=== PATIENT | female | born 1960 | race Caucasian/White ===

== ENCOUNTER → 2019-12-26 14:43 | Outpatient (BNVA) | payer MEDICARE, MEDICAID, SELFPAY | PROVIDERS: Family Provider Physician Assistant; Visit Provider Nurse Practitioner Family | DX: R05 Cough (principal); J01.40 Acute pansinusitis, unspecified | CPT/HCPCS: 87804 ==

== ENCOUNTER 2020-08-17 07:50 | Outpatient (CLI) | payer MEDICARE, MEDICAID, SELFPAY ==
--- NOTE | 2020-08-17 08:10 | MR_ITS ---
WS: [id number] MRI LUMBAR SPINE NONCONTRAST HISTORY: LOW BACK PAIN COMPARISON: 11/30/2018 TECHNIQUE: Sagittal and axial multisequence imaging is submitted. Moderate RIGHT thoracic and LEFT lumbar scoliosis. Mild straightening of the normal cervical lordosis . Same numbering pattern will be utilized as on the prior MRI. Posterior lumbar alignment is normal. Mild disc space narrowing and desiccation throughout the lumbar spine. No severe narrowing of the dis cs. Benign hemangioma within L2. Conus terminates normally at L1-2 disc level. L1-L2: Mild annular disc bulging with mild facet joint arthritis. No stenosis or interval change. L2-L3: Normal. L3-L4: Mild annular disc bulging and moderate facet and ligamentum flavum hypertrophy. Increase fluid in the facet joints, similar to the prior study. No significant stenosis. L4-L5: Diffuse asymmetric disc bulging with moderate ligamentum flavum disease and facet arthritis. I ncrease fluid in the facet joints is slightly increased since the prior study. No significant stenosi s. L5-S1: Mild asymmetric annular disc bulging and facet arthritis. Increase fluid in the facet joints b ilaterally. Visualized retroperitoneum is negative. MR/MR lumbar spine wo con* [id number] IMPRESSION: 1. Moderate LEFT scoliosis. 2. No high-grade central or foraminal stenosis. 3. Facet joint arthritis most significant from L3-4 to L5-S1. Minimal progress ion in the facet joint arthritis at L4-5.
--- NOTE | 2020-08-17 08:10 | XR_ITS ---
WS: [id number] LATERAL LUMBAR SPINE: 3 view. Lateral radiographs are performed in upright neutral, flexion and extension to the patient's toleranc e. HISTORY: LOW BACK PAIN COMPARISON: 11/30/2018 L5 anterolisthesis by 3.3 mm. With flexion and extension and taking into consideration the rotation t here is no change with flexion or extension as noted on the prior study. Posterior alignment is melita l. Vertebral bodies are rotated due to scoliosis. Facet joint arthritis is mild at L5-S1. Heavy calcification within the aorta. XR/XR lumbar spine f/e only [id number] IMPRESSION: 1. Mild anterolisthesis of L5 by 3.3 mm. No instability demonstrated. 2. Moderate atherosclerosis aorta.
== END 2020-08-17 07:51 | disposition home or self-care (01) ==
LOC: RADWPI 07:52
PROVIDERS: Family Provider Physician Assistant; Visit Provider Anesthesiology Pain Medicine
DX: I70.0 Atherosclerosis of aorta (principal); M41.9 Scoliosis, unspecified; M47.816 Spondylosis without myelopathy or radiculopathy, lumbar region; M47.817 Spondylosis without myelopathy or radiculopathy, lumbosacral region
CPT/HCPCS: 72120; 72148

== ENCOUNTER 2021-02-03 09:54 | Outpatient (CLI) | payer MEDICARE, MEDICAID, SELFPAY ==
--- NOTE | 2021-02-03 10:11 | XR_ITS ---
WS: [id number] Left knee, 3 views, 02/03/2021 Clinical Data: ACUTE PAIN OF LEFT KNEE Comparison: None. Findings: No fractures or dislocations are seen. The joint spaces are normal. The patella is intact. The soft t issues are unremarkable. There are clips in the medial subcutaneous tissues of the left knee. There is calcification in the wa lls of the superficial femoral and popliteal arteries. XR/XR knee LT 3V* [id number] Impression: Negative left knee.
== END 2021-02-03 09:55 | disposition home or self-care (01) ==
LOC: RAD 10:05
PROVIDERS: Visit Provider Nurse Practitioner Family
DX: M25.562 Pain in left knee (principal)
CPT/HCPCS: 73562